=== PATIENT | male | born 1950 | race Caucasian/White ===

== ENCOUNTER → 2017-08-07 | Day surgery (SDC) | payer MEDICARE ==
[~2017-08-07] VITALS: Ht 177.8 cm; Wt 134.7 kg
[~2017-08-07] MED LIST: ACET325T51 PO; BECL8.7A6 INHALATION; BUPR150T9 PO; CETI10CA PO; CHLO500T24 PO; DIPH25CA6 PO; FLUT9.9S NS; Lactated Ringer's 1,000 ML IV ONE; Lactated Ringer's 1,000 ML IV SCH; MAGN100T5 PO; MetoCLOpramide 5 mg/mL 2 mL Inj IVPUSH PRN; NC8176 PO; OLOP2.5D OCULAR; OMEP20TA86 PO; Ondansetron 2 mg/mL 2 mL Inj IVPUSH PRN; PHEN-499 PO; PYR50 PO; SPIR25TA3 PO; WARF7.5T4 PO
[2017-08-07 10:40] VITALS: BP 142/92; PULSE 67; RESP 15; O2SAT 96
--- NOTE | 2017-08-07 11:07 | PCM.HPANE ---
Patient Data Date of Service: Aug 07, 2017 Surgeon Admitting Provider: Attending Provider:Mohamud Wilde MD Primary Care Physician:Roney Gomez MD Other Provider:Esperanza Palomino Anesthesia Reason for Visit Altered Bowel Habits Ht/WT & BMI Height (Feet): 5 Height (Inches): 10 Weight (Kilograms): 134.72 Body Mass Index 42.00 Allergies Coded Allergies: Penicillins (Verified Allergy, Unknown, 08/06/17) Past Anesthesia History Anesthesia History: Denies:: Anesthesia Reactions, Fam Malignant Hypertherm Diabetes History Hx Diabetes?: No MRSA MRSA: No Medications Reported Medications Cetirizine HCl (Zyrtec)10 Mg Capsule5 Mg PO HS #30 CAPSULE Ref 0 08/05/17 Warfarin Sodium 7.5 Mg Tablet7.5 Mg PO DAILY 30 Days Ref 0 08/05/17 Pyridoxine (Vitamin B-6)50 Mg Yvvyvr453 Mg PO DAILY 08/05/17 Acetaminophen 325 Mg Adhzij677 Mg PO Q4H PRN For Fever Ref 0 08/05/17 Spironolactone 25 Mg Vvlvln73 Mg PO DAILY #30 TABLET Ref 0 08/05/17 Beclomethasone Dipropionate (Qvar)8.7 Gm Aer.w.adap2 Puff INHALATION BID #8.7 GM 08/05/17 Olopatadine HCl (Pataday)2.5 Ml Drops2.5 Ml OCULAR 08/05/17 Omeprazole 20 Mg Tablet.dr20 Mg PO DAILY 08/05/17 Magnesium Amino Acid Chelate (Magnesium)100 Mg Ukizxn523 Mg PO 08/05/17 Fluticasone Propionate (Flonase Allergy Relief)50 Mcg/Actuation [place].susp2 [place] 08/05/17 Chlorzoxazone 500 Mg Atbaxm580 Mg PO TID 08/05/17 Bupropion HCl (Zyban)150 Mg Tablet.er150 Mg PO BID 08/05/17 Benazepril 10 Mg Gllwsi89 Mg PO DAILY 08/05/17 diphenhydrAMINE HCl (Benadryl)25 Mg Zjkscvg07 Mg PO Q4 PRN For Itching Ref 0 08/05/17 Discontinued Reported Medications Phentermine 30 Mg Ocdbfqe88 Mg PO 08/05/17 History History of ENT Problems?: Yes (nasal congestion) HEENT History: Denies:: Hearing Problem Denture Type: None Teeth Condition: Within Normal Limits Missing Teeth Hx of Heart Problems?: Yes Cardiovascular History: Positive for:: Hypertension Denies:: AICD Congestive Heart Failure Pacemaker Hx of Respiratory Problem?: Yes Respiratory History: Positive for:: Asthma (SLIGHT) Denies:: Tuberculosis Hx Neurologic Problems?: No Neurological History: Denies:: CVA Hx of GI Problems?: No Hx of Problems?: Yes (s/p TURP) Hx Musculoskeletal Problems?: No Hx of Psycho/Social Problems?: Yes Psycho Social History: Positive for:: Hx Depression Denies:: Anxiety Hx Surgeries?: Yes (TURP, ) Hx Any Other Health Problems?: No Hx Diabetes: No Hx Alcohol Use: Yes (occasionaly) Stop/Bang Treated for Sleep Apnea?: Yes Do You Have a CPAP Machine?: Yes (USE REGULARLY) HARJEET Category 1: Yes Risk Assessment Category Category 1A: Patient has history of documented sleep apnea, and HAS NOT received any narcotic, sedative or anesthesia administration during this stay. Category 1B: Patient has history of documented sleep apnea, and HAS received any narcotic , sedative or anesthesia administration during this stay Category 2: Patient has SUSPECTED Obstructive Sleep Apnea, and HAS received any narcotic , sedative or anesthesia administration during this stay. Category 3: Patient has SUSPECTED Obstructive Sleep Apnea and HAS NOT received narcotic, sedative or anesthesia administration during this stay. Category 4: Outpatient in Procedural Areas with known sleep apnea or who screen positive for High Risk via the STOP/BANG questionnaire. Exam Exam Vital Signs Vital Signs Date Time Temp Pulse Resp B/P Pulse Ox O2 Delivery O2 Flow Rate FiO2 08/07/17 10:40 36.8 67 15 142/92 96 Room Air General Appearance: Alert, Oriented X3, Cooperative HEENT/AIRWAY: MP 3 Lungs: Clear to Auscultation Heart: Exam Unremarkable Plan Impression Patient chart reviewed, patient interviewed and anesthestic plan with risks, benefits, and alternatives discussed, and informed consent obtained. NPO per Anesth. Guidelines: Yes ASA Physical Status: ASA3 Severe Disease Anesthetic Plan: MAC Bene/Risks/Altern/Consents: Yes HP Complete Prior to Induction: Yes Benito Vo MD Aug 07, 2017 11:07
[2017-08-07 11:43] VITALS: BP 132/81; PULSE 77; RESP 16; O2SAT 97
--- NOTE | 2017-08-07 11:45 | PCM.ENDCOL ---
Colonoscopy Date of Service: Aug 07, 2017 Physician Mohamud Wilde MD Pre Procedure Diagnosis: Screening constipation Post Procedure Dx & Findings: Diverticuli hemorrhoids Procedure Colonoscopy PROCEDURE IN DETAIL: This sedation provided by anesthesiology Prep adequate Withdrawal time 12 minutes After unremarkable rectal examination the Olympus video colonoscope was inserted patient's anal canal and was advanced to cecum. Landmarks were identified including the ileocecal valve and appendiceal orifice. Scope was withdrawn systematically. Visualized colonic mucosa showed healthy shiny mucosa with normal healthy-appearing vasculature. Patient had diverticulitis multiple large mostly in the sigmoid colon however isolated all the way up to the ascending colon. In the rectum retroflexion was done which showed hemorrhoids. Anal canal was inspected carefully on the way out and hemorrhoids noted. Impression Diverticuli Hemorrhoids Recommendation Repeat colonoscopy 10 years Diverticular diet Presedation Assessment Risks and Benefits Informed consent was obtained from the patient after all risks and benefits including but not limited to drug reaction, infection, pain, bleeding, perforation, as well as alternatives were discussed. Patient monitoring Continuous pulse oximetry, cardiac monitoring, blood pressure monitoring, IV access, and oxygen at 2L per nasal cannula. Complications There were no periprocedural complications identified. Post Procedure Plan Post Procedure Recommendations 1. Restrict activities today. 2. Resume normal activities in the morning. 3. Resume medications. 4. Patient informed of normal post procedure side effects as bloating, drowsiness, blood streaking in the stool. 5. average risk CRCS. If colon polyps come back as: -Hyperplastic- can repeat colonoscopy in 10 years -Tubular adenoma- repeat colonoscopy in 5 years -Tubulovillous/villous adenoma- repeat colonoscopy in 3 years -If any dysplasia- return to clinic as soon as possible 6. Please don't hesitate to call me with any questions. Mohamud Wilde MD Aug 07, 2017 11:45
[2017-08-07 11:50] VITALS: BP 134/73; PULSE 74; RESP 14; O2SAT 97
--- NOTE | 2017-08-07 12:35 | PCM.ANEP1 ---
Post Anesthesia PACU Phase 1 Assessment Vital Signs Vital Signs Date Time Temp Pulse Resp B/P Pulse Ox O2 Delivery O2 Flow Rate FiO2 08/07/17 11:50 74 14 134/73 97 Room Air 08/07/17 11:43 77 16 132/81 97 Room Air 08/07/17 10:40 36.8 67 15 142/92 96 Room Air Anesthetic Administered: MAC Level of Alertness: Awake, talking Pain: No Nausea or Vomiting: No CV Function & Hydration Stable: Yes Airway Device: Oxygen Delivery: Room Air Lungs: Clear to Auscultation PACU Phase 2 Assessment Patient Instructions Provided: N/A Benito Vo MD Aug 07, 2017 12:35
== END | disposition home or self-care (01) ==
LOC: END 00:12
PROVIDERS: ATTEND Internal Medicine
DX: Z12.11 Encounter for screening for malignant neoplasm of colon (principal); K57.30 Diverticulosis of large intestine without perforation or abscess without bleeding; K64.8 Other hemorrhoids; I10 Essential (primary) hypertension; G47.33 Obstructive sleep apnea (adult) (pediatric); K21.9 Gastro-esophageal reflux disease without esophagitis; I26.99 Other pulmonary embolism without acute cor pulmonale; J44.9 Chronic obstructive pulmonary disease, unspecified; K59.00 Constipation, unspecified; Z79.01 Long term (current) use of anticoagulants
CPT/HCPCS: G0121; J7120